=== PATIENT | male | born 1995 | race Caucasian/White ===

== ENCOUNTER 2020-07-27 10:27 | Emergency (ER) | payer MEDICAID, SELFPAY ==
[2020-07-27 10:27] VITALS: BP 147/94; PULSE 76; RESP 14; TEMP 36.6; O2SAT 97; BMI 25.7
--- NOTE | 2020-07-27 10:45 | HMH.EDUTC ---
[facility] [place] Clinical Impression: Encounter for laboratory testing for COVID-19 virus Sinusitis Qualifiers: Sinusitis location: unspecified location Chronicity: unspecified Qualified Code(s): J32.9 - Chronic sinusitis, unspecified Disposition: Home, Self-Care Condition on Discharge: Good Instructions: Sinusitis, DI for Sinusitis, DI for COVID-19 (Suspected or Confirmed ), Coronavirus Disease 2019, Preventing the Spread of Coronavirus Discharge Instructions Additional Instructions: *Monitor Temp, Over the counter Motrin or Tylenol as directed/as needed Tylenol every 4 hours and Motrin every 6 hours (as long as your family doctor has told you that you can take it) for fever or pain. and straight to ER if unable to lower temp less than 101.0 after medication given *Warm salt water gargles may help to soothe the throat *Throat Lozenges *Warm fluids like tea with honey may help to soothe the throat *Sleep elevated *Humidifier/Vaporizer Follow up IMMEDIATELY for new or worsening symptoms or no Noticeable improvement over the next 48-72 hours. 911 for difficulty breathing or swallowing You were tested for today for COVID19 your test result should be back in the next 24-48 hours, you may call to the [facility] to see if your test results are back in the next 48 hours [phone] [facility] hours are 9am-9pm You was given a handout with instructions for Self Quarantine and Self isolation for while you wait on test results and what to do if they are positive If you are positive the Health Dept will be contacting you also Prescriptions: Azithromycin [Z-Ilan 250mg Tab] 250 mg PO DIRECTED #6 tab Transmission Status: Pending to [id number] Referrals: PCP,No [Primary Care Provider] - As needed Time of Disposition: 10:49 Medical Decision Making - Anil Inquiry Pt receiving controlled substance: No Anil was queried for this patient: No Vital Signs: 07/27/20 10:27 Temperature 97.8 F Temperature Source Oral Pulse Rate [Right] 76 Respiratory Rate 14 Blood Pressure [Right Arm] 147/94 H Blood Pressure Mean [Right Arm] 111 02 Sat by Pulse Oximetry 97 [facility] [place] - General Stated complaint: covid symtoms Time Seen by Provider: 07/27/20 10:45 Description of Symptoms (Recalled from Triage Doc. by RN): pt request covid test pt c/o body aches, fever,chills HEENT Symptoms (Recalled from RN notes): No Resp Symptoms (Recalled from RN notes): Yes Skin Symptoms (Recalled from RN notes): No MS Symptoms (Recalled from RN notes): No Functional Status (Recalled from RN notes): wnl - History of Present Illness Provider Complaint: Patient wanting to get tested for COVID States that he has been having sinus pain and pressure, body aches, chills and headachy not sure if he has had a fever or not but feels like he has Denies known exposure - Related Data Previous Rx's Medication Instructions Recorded Azithromycin [Z-Ilan 250mg Tab] 250 mg PO DIRECTED #6 tab 07/27/20 Allergies Allergy/AdvReac Type Severity Reaction Status Date / Time No Known Allergies Allergy Verified 07/27/20 10:42 - Worker's Comp Is this a Worker's Comp case?: No Is this an H Worker's Comp?: No Is this a [place] Worker's Comp?: No [facility] History - Hepatitis A Screen Drug use history?: No High risk sexual behaviors?: No History of sexually transmitted infection?: No Currently employed?: No Childcare worker?: No Do you have indoor plumbing?: Yes Do you have electricity?: Yes Attestation statement:: This patient has been screened for Hepatitis A risk factors. I have reviewed the patient's past medical history: Yes 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: Denies:: Diabetes Mellitus Type 1, Diabetes Mellitus Type 2 - Social History Smoking Status: Current every day smoker Tobacco Type: cigarettes Alcohol Intake: never Occupational Status: employed ROS Obtained: Yes All systems reviewed & no additional complaints, Yes Systems reviewed as appropriate
[2020-07-27 10:53] VITALS: BP 147/94; PULSE 76; RESP 14; TEMP 36.6; O2SAT 97
[2020-07-28 11:44] LABS: Covid-19 Nasal PCR Sendout P&C NEGATIVE
== END 2020-07-27 10:57 | disposition home or self-care (01) ==
PROVIDERS: Emergency Provider Nurse Practitioner
DX: Z20.822 Contact with and (suspected) exposure to COVID-19 (principal); J32.9 Chronic sinusitis, unspecified; F17.210 Nicotine dependence, cigarettes, uncomplicated
CPT/HCPCS: 99202; G0463; U0004

== ENCOUNTER 2022-01-23 17:39 | Emergency (ER) | payer MEDICAID, SELFPAY ==
--- NOTE | 2022-01-23 17:33 | ECG_ITS ---
APPROVED REPORT Exam: Resting ECG HR:89 bpm ECG Measurements Heart Rate 89 AXES GA 137 P 68 QRSd 105 QRS 71 QT 332 T 42 QTc 379 Conclusion SINUS RHYTHM POSSIBLE LEFT ATRIAL ENLARGEMENT [-0.1mV P-WAVE IN V1/V2] BORDERLINE ECG UNCONFIRMED REPORT Electronically signed by : Curly Holcomb MD 01/24/2022 17:57:39
[2022-01-23 17:39] VITALS: BP 137/87; PULSE 94; RESP 28; TEMP 36.8; O2SAT 100; BMI 23.6
--- NOTE | 2022-01-23 17:48 | XR_ITS ---
PROCEDURE INFORMATION: Exam: XR Chest Exam date and time: 01/23/2022 6:02 PM Age: 26 years old Clinical indication: Other: Diffuse chest pain; Additional info: Cp TECHNIQUE: Imaging protocol: Radiologic exam of the chest. Views: 1 view. COMPARISON: No relevant prior studies available. FINDINGS: Lungs: Unremarkable. No consolidation. Pleural spaces: Unremarkable. No pleural effusion. No pneumothorax. Heart/Mediastinum: Unremarkable. No cardiomegaly. Bones/joints: Unremarkable. IMPRESSION: No acute findings.
--- NOTE | 2022-01-23 17:50 | HMH.EDCP ---
ED Disposition Clinical Impression: Atypical chest pain, Medication refill Disposition: Home, Self-Care Condition on Discharge: Good Instructions: DI for Atypical Chest Pain Additional Instructions: follow up PCP, return for worse Prescriptions: Buspirone HCl [Buspirone 15 mg Tablets] 15 mg PO TID PRN #15 tab PRN Reason: Anxiety Transmission Status: Received by [facility] [place] [id number] hydrOXYzine HCL [Hydroxyzine HCl] 25 mg PO Q8 PRN #15 tab PRN Reason: Anxiety Transmission Status: Received by [facility] [place] [id number] - Critical Care Critical Care Time: No Attestation: On , the high probability of a clinically significant, sudden or life threatening deterioration of the following system(s) required my full and direct attention, intervention and personal management. The time I documented below is in addition to time spent performing reported procedures but includes the following listed in this critical care notation. Medical Decision Making - Medical Records Medical records reviewed: Yes: I reviewed the patient's medical records. - Anil Inquiry Pt receiving controlled substance: No Vital Signs: 01/23/22 17:39 Temperature 98.2 F Temperature Source Oral Pulse Rate [Brachial] 94 H Respiratory Rate 28 H Blood Pressure [Right Arm] 137/87 Blood Pressure Mean [Right Arm] 103 Blood Pressure Source [Right Arm] Automatic Cuff Blood Pressure Position [Right Arm] Sitting 02 Sat by Pulse Oximetry 100 Oxygen Delivery Method Room Air - Lab Data Lab Results 01/23/22 17:45: Troponin I < 0.01 01/23/22 17:45: WBC 5.4, RBC 4.99, Hgb 14.7, Hct 44.5, MCV 89.3, MCH 29.4, MCHC 32.9, RDW 13.1, Plt Count 237, MPV 8.0, Neut % (Auto) 47.3, Lymph % (Auto) 41.0, [place] % (Auto) 5.6, Eos % (Auto) 3.8, Baso % (Auto) 2.2 H, Neut # (Auto) 2.6, Lymph # (Auto) 2.2, [place] # (Auto) 0.3, Eos # (Auto) 0.2, Baso # (Auto) 0.1 01/23/22 17:45: Sodium 139, Potassium 3.7, Chloride 102, Carbon Dioxide 29, Anion Gap 11.7, BUN 16, Creatinine 1.00, Estimated GFR 89, Est GFR ( Amer) 108, Glucose 97, Calcium 9.7, Total Bilirubin 1.0, AST 31, ALT 22, Alkaline Phosphatase 51, Total Protein 7.8, Albumin 4.8, Globulin 3.0, Albumin/Globulin Ratio 1.6 Result diagrams: 01/23/22 17:45 01/23/22 17:45 Orders (Tests/Meds): ORDERS Category Date Time Status Troponin I Q3H Lab 01/23/22 21:00 Ordered Troponin I Q3H Lab 01/24/22 00:00 Ordered - ECG Data Tracing #1 I reviewed this ECG and interpreted as documented below: ekg by me nsr, poss lae, no st elev Chest Pain HPI - General Stated Complaint: Anxiety Time Seen by Provider: 01/23/22 17:50 - History of Present Illness HPI narrative: cp, left sided, sharp, intermittent, few days says he is having a lot of anxiety from being out of anxiety meds Duration: intermittent Pain location: left chest Severity: moderate Quality: sharp Pain radiation: none Relieving factors: nothing Exacerbating factors: other (anxiety) - Related Data Previous Rx's Medication Instructions Recorded Azithromycin [Z-Ilan 250mg Tab] 250 mg PO DIRECTED #6 tab 07/27/20 Buspirone HCl [Buspirone 15 mg 15 mg PO TID PRN #15 tab 01/23/22 Tablets] hydrOXYzine HCL [Hydroxyzine HCl] 25 mg PO Q8 PRN #15 tab 01/23/22 Allergies Allergy/AdvReac Type Severity Reaction Status Date / Time No Known Allergies Allergy Verified 07/27/20 10:[address] [facility] History - Hepatitis A Screen Attestation statement:: This patient has been screened for Hepatitis A risk factors. 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: Denies:: Diabetes Mellitus Type 1, Diabetes Mellitus Type 2 - Social History Smoking Status: Current every day smoker Tobacco Type: cigarettes Alcohol Intake: never Occupational Status: employed ROS Obtained: Yes All systems reviewed & no additional complaints Physical Exam - General General appearance: alert, in no apparent distress - Head Head exam: atraumatic, normocephalic - Eye Eye exam:
[2022-01-23 18:01] LABS: Basophils # 0.1 K/mm3 (0-0.2); Basophils % 2.2 % (0.1-2.0); Chloride 102 mmol/L (98-107); Eosinophils # 0.2 K/mm3 (0.0-0.4); Eosinophils % 3.8 % (0.1-12.0); Hematocrit 44.5 % (42.0-52.0); Hemoglobin 14.7 g/dL (14.1-18.0); Lymphocytes # 2.2 K/mm3 (0.7-4.5); Mean Corpuscular HGB Conc 32.9 g/dL (31.8-35.4); Mean Corpuscular Hemoglobin 29.4 pg (27.0-31.2); Mean Corpuscular Volume 89.3 fl (80-94); Monocytes # 0.3 K/mm3 (0.1-1.0); Monocytes % 5.6 % (1.7-9.3); Neutrophils # 2.6 K/mm3 (1.8-7.8); Neutrophils % 47.3 % (37.0-80.0); Platelet Count 237 K/mm3 (142-424); Potassium 3.7 mmoL/L (3.5-5.1); Red Blood Count 4.99 M/mm3 (4.60-6.20); Red Cell Distribution Width 13.1 % (11.5-17.5); Sodium 139 mmol/L (136-145); White Blood Count 5.4 K/mm3 (4.8-10.8)
[2022-01-23 18:04] LABS: Alanine Aminotransferase 22 U/L (12-78); Albumin Level 4.8 g/dl (3.5-5.0); Albumin/Globulin Ratio 1.6 (1.1-1.8); Alkaline Phosphatase 51 U/L (38-126); Anion Gap 11.7 mEq/L (5-15); Aspartate Amino Transferase 31 U/L (17-59); Blood Urea Nitrogen 16 mg/dl (9-20); Carbon Dioxide 29 mmol/L (22.0-30.0); Estimated Glomerular Filt Rate 89 ml/min (>60); GFR (African American) 108 ML/MIN (>60); Total Protein,Serum 7.8 g/dl (6.3-8.2)
[2022-01-23 18:05] LABS: Calcium 9.7 mg/dl (8.4-10.2); Glucose 97 mg/dl (74-100)
[2022-01-23 18:20] LABS: Troponin I < 0.01 ng/ml (0.00-0.034)
--- NOTE | 2022-01-23 18:29 | PC.NURSE ---
MD AT BEDSIDE DISCUSSING POC WITH PT
[2022-01-23 20:04] VITALS: BP 137/87; PULSE 90; RESP 18; TEMP 37; O2SAT 100
== END 2022-01-23 20:08 | disposition home or self-care (01) ==
PROVIDERS: Emergency Provider Emergency Medicine
DX: R07.89 Other chest pain (principal); F41.9 Anxiety disorder, unspecified; F17.210 Nicotine dependence, cigarettes, uncomplicated
CPT/HCPCS: 71045; 80053; 84484; 85025; 93005; 99285

== ENCOUNTER 2022-10-04 17:52 | Emergency (ER) | payer MEDICAID, SELFPAY ==
[2022-10-04 18:20] VITALS: BP 127/95; PULSE 78; RESP 18; TEMP 36.7; O2SAT 96; BMI 23.7
--- NOTE | 2022-10-04 18:36 | EXP.UTC ---
Discharge Plan Disposition Patient Disposition: Home, Self-Care Condition: Good Prescriptions Prescriptions: No Action hydroxyzine HCl 25 MG tablet 25 mg PO Q8 PRN (Reason: Anxiety) Qty: 15 0RF buspirone 15 MG tablet 15 mg PO TID PRN (Reason: Anxiety) Qty: 15 0RF azithromycin 250 MG tablet 250 mg PO DIRECTED Qty: 6 0RF Rx Instructions: Take two (2) tablets on day #1, then one (1) tablet day #2 thru #5 Referrals Follow up/Referrals: Provider,Referral, MD [Primary Care Provider] - See instructions Activity Restrictions/Add. Instructions Additional Instructions/Restrictions: Gargle warm salt water Apply a mixture of half hydrogen peroxide and half water directly to the sore using a cotton swab. Follow by dabbing a small amount of Milk of Magnesia on the canker sore afterward. Repeat these steps 3 to 4 times a day. Rinse your mouth with a mixture of equal parts of half Milk of Magnesia and half Benadryl liquid allergy medicine may help with the pain Follow up with Dentist if no improvement or any worsening of symptoms Clinical Impressions Clinical Impression: Canker sores oral Instructions Patient Instructions: Aphthous Ulcers, DI for Aphthous Ulcers (Canker Sores) Discharge ED Provider: Diana Aguilar [facility] General Stated complaint: sore inside mouth Time Seen by Provider: 10/04/22 18:36 History of Present Illness Provider Complaint: Patient states that he has a canker sore on the inside of his lower lip that has been there for about 2 weeks States that he has been causing pain for about 2 weeks now States that he has tried salt water but it hasnt work so he came in not knowing what to do next to help it Related Data Previous Rx's Medication Instructions Recorded azithromycin 250 mg tablet 250 mg PO DIRECTED #6 tabs 07/27/20 buspirone 15 mg tablet 15 mg PO TID PRN Anxiety #15 tabs 01/23/22 hydroxyzine HCl 25 mg tablet 25 mg PO Q8 PRN Anxiety #15 tabs 01/23/22 Allergies Allergy/AdvReac Type Severity Reaction Status Date / Time No Known Allergies Allergy Verified 07/27/20 10:42 [facility] Disclaimer: The information contained in this section may have been updated after the patient was seen, as this information can be updated by other users. Social History Smoking Status: Current every day smoker tobacco type: cigarettes alcohol intake: never current occupational status: employed Travel in the last 8 weeks: None ROS Obtained: Yes All systems reviewed & no additional complaints except as documented and Yes Systems reviewed as appropriate & no additional complaints except as documented Constitutional Constitutional: Reports system reviewed and no additional complaints, except as documented and Reports as per HPI ENT Ears, Nose, Mouth, and Throat: Reports system reviewed and no additional complaints, except as documented, Reports as per HPI and Reports other Comments: canker sore in lower lip Physical Exam General General appearance: alert and in no apparent distress Expanded ENT Exam Mouth exam: Present other (small canker sore noted ) Respiratory Respiratory exam: Present normal lung sounds bilaterally; Absent respiratory distress or wheezes Cardiovascular Cardiovascular exam: Present regular rate, normal rhythm and normal heart sounds Abdominal Exam Abdominal exam: Present soft and normal bowel sounds; Absent distention or tenderness Neurological Exam Neurological exam: Present alert, oriented X3 and normal gait Medical Decision Making Anil Inquiry Pt receiving controlled substance: No Anil was queried for this patient: No
[2022-10-04 18:59] VITALS: BP 125/85; PULSE 80; RESP 18; TEMP 36.7; O2SAT 98
== END 2022-10-04 19:00 | disposition home or self-care (01) ==
PROVIDERS: Emergency Provider Nurse Practitioner
DX: K12.0 Recurrent oral aphthae (principal); F17.210 Nicotine dependence, cigarettes, uncomplicated
CPT/HCPCS: 99212; G0463

== ENCOUNTER 2023-09-14 10:10 | Emergency (ER) | payer MEDICAID, SELFPAY ==
[2023-09-14 10:30] VITALS: BP 118/77; PULSE 75; RESP 18; TEMP 36.8; O2SAT 99; BMI 24.2
--- NOTE | 2023-09-14 10:47 | EXP.UTC ---
Discharge Plan Disposition Patient Disposition: Home, Self-Care Condition: Good Prescriptions Prescriptions: No Action indomethacin 50 mg capsule 50 mg PO DAILY sertraline 50 mg tablet 50 mg PO DAILY Patient Comments: TAKE 1 TABLET BY MOUTH DAILY Referrals Follow up/Referrals: Provider,Referral, [Primary Care Provider] - See instructions Activity Restrictions/Add. Instructions Additional Instructions/Restrictions: FOLLOW UP WITH PCP CALL LATER TODAY FOR RESULTS FOLLOW UP WITH ENT- call saturday for appointment Clinical Impressions Clinical Impression: Thyroid enlargement Instructions Patient Instructions: DI for Cough -- Adult, Thyroid Hormone (Alternative Therapy) [facility]charge [facility] [place] H[place] General Stated complaint: sore throat Mode of Arrival: Ambulatory Source of Information: Patient Limitations: No Limitations Time Seen by Provider: 09/14/23 10:48 Description of Symptoms (Recalled from Triage Doc. by RN): PATIENT STATES HE FEELS LIKE SOMETHING IN HIS THROAT THAT HE CAN'T CLEAR. HE REPORTS THIS HAS BEEN ON GOING FOR MONTHS HEENT Symptoms (Recalled from RN notes): Yes Resp Symptoms (Recalled from RN notes): No Skin Symptoms (Recalled from RN notes): No MS Symptoms (Recalled from RN notes): No Functional Status (Recalled from RN notes): WNL History of Present Illness Provider Complaint: 27 YR OLD MALE PRESENTS FOR COUGH AND FEELING THERE IS SOMETHING STUCK IN HIS THROAT. PT STATES THIS HAS BEEN GOING ON FOR MONTHS BUT LAST PM HE SAW SOMETHING DEEP IN HIS THROAT AND HE PULLED IT OUT AND IT BLEED. PT STATES THE SENSATION HAS WORSEN Related Data Home Medications Medication Instructions Recorded Confirmed indomethacin 50 mg capsule 50 mg PO DAILY 09/14/23 09/14/23 sertraline 50 mg tablet 50 mg PO DAILY 09/14/23 09/14/23 Allergies Allergy/AdvReac Type Severity Reaction Status Date / Time No Known Allergies Allergy Verified 07/27/20 10:42 Worker's Comp Is this a Worker's Comp case?: No [facility] Disclaimer: The information contained in this section may have been updated after the patient was seen, as this information can be updated by other users. 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) Smoking Status: Current every day smoker tobacco type: cigarettes alcohol intake: never current occupational status: employed Travel in the last 8 weeks: None ROS Obtained: Yes All systems reviewed & no additional complaints except as documented Constitutional Constitutional: Reports system reviewed and no additional complaints, except as documented and Reports as per HPI Eyes Eyes: Reports system reviewed and no additional complaints, except as documented ENT Ears, Nose, Mouth, and Throat: Reports system reviewed and no additional complaints, except as documented, Reports as per HPI and Reports sore throat Cardiovascular Cardiovascular: Reports system reviewed and no additional complaints, except as documented Respiratory Respiratory: Reports system reviewed and no additional complaints, except as documented, Reports as per HPI and Reports cough Gastrointestinal Gastrointestingal: Reports system reviewed and no additional complaints, except as documented Neurologic Neurologic: Reports system reviewed and no additional complaints, except as documented Endocrine Endocrine: Reports system reviewed and no additional complaints, except as documented Allergic/Immunologic Allergic/Immunologic: Reports system reviewed and no additional complaints, except as documented Physical Exam General General appearance: alert and in no apparent distress Head Head exam: atraumatic Eye Eye exam: Present normal appearance and PERRL ENT ENT exam: Present mucous membranes moist and TM's normal bilaterally Neck Neck exam: Present thyromegaly Respiratory Respiratory exam: Present normal lung sounds bilaterally Cardiovascular Cardiovascular exam: Present regular rate and normal rhythm Neurological Exam Neurological exam: Present alert and oriented X3 Skin Skin exam: Present warm Medical Decision Making Medical Records Medical records reviewed: Yes I reviewed the patient's medical records. Anil Inquiry Pt receiving controlled substance: No Anil was queried for this patient: No Vital Signs: 09/14/23 10:30 Temperature 98.2 F Temperature Source Oral Pulse Rate [Left Brachial] 75 Respiratory Rate 18 Blood Pressure [Left Arm] 118/77 Blood Pressure Mean [Left Arm] 90 Blood Pressure Source [Left Arm] Automatic Cuff Blood Pressure Position [Left Arm] Sitting 02 Sat by Pulse Oximetry 99 Oxygen Delivery Method Room Air
--- NOTE | 2023-09-14 10:56 | XR_ITS ---
PROCEDURE INFORMATION: Exam: XR Chest Exam date and time: 09/14/2023 10:58 AM Age: 27 years old Clinical indication: Cough TECHNIQUE: Imaging protocol: Radiologic exam of the chest. Views: 2 views. COMPARISON: CR XR CHEST PORTABLE 01/23/2022 6:02 PM FINDINGS: Lungs: Unremarkable. No consolidation. Pleural spaces: Unremarkable. No pleural effusion. No pneumothorax. Heart/Mediastinum: Unremarkable. No cardiomegaly. Bones/joints: Unremarkable. IMPRESSION: No acute findings.
[2023-09-14 11:15] VITALS: BP 118/77; PULSE 75; RESP 18; TEMP 36.8; O2SAT 99
[2023-09-14 11:27] LABS: MANUAL DIFFERENTIAL MANUAL DIFFERENTIAL (MANUAL DIFF)
[2023-09-14 11:39] LABS: Eosinophils # 0.1 K/mm3 (0.0-0.4); Eosinophils % 1.8 % (0.1-12.0); Hematocrit 42.6 % (42.0-52.0); Hemoglobin 14.2 g/dL (14.1-18.0); Lymphocytes # 1.5 K/mm3 (0.7-4.5); Lymphocytes % 40.9 % (10-50); Mean Corpuscular HGB Conc 33.5 g/dL (31.8-35.4); Mean Corpuscular Volume 92.7 fl (80-94); Monocytes # 0.3 K/mm3 (0.1-1.0); Monocytes % 7.8 % (1.7-9.3); Neutrophils # 1.8 K/mm3 (1.8-7.8); Neutrophils % 48.5 % (37.0-80.0); Platelet Count 220 K/mm3 (142-424); Red Blood Count 4.59 M/mm3 (4.60-6.20); Red Cell Distribution Width 13.1 % (11.5-17.5); White Blood Count 3.7 K/mm3 (4.8-10.8)
[2023-09-14 11:45] LABS: Alanine Aminotransferase 16 U/L (12-78); Albumin Level 4.6 g/dl (3.5-5.0); Albumin/Globulin Ratio 1.6 (1.1-1.8); Alkaline Phosphatase 39 U/L (38-126); Anion Gap 9.1 mEq/L (5-15); Aspartate Amino Transferase 28 U/L (17-59); Bilirubin,Total 1.4 mg/dl (0.2-1.3); Blood Urea Nitrogen 13 mg/dl (9-20); Calcium 9.1 mg/dl (8.4-10.2); Carbon Dioxide 29 mmol/L (22.0-30.0); Chloride 106 mmol/L (98-107); Creatinine Clearance Estimated 148 mL/min (50-200); Estimated Glomerular Filt Rate 114 ml/min (>60); GFR (African American) 138 ML/MIN (>60); Globulin 2.9 g/dL (1.3-3.2); Glucose 105 mg/dl (74-100); Potassium 4.1 mmoL/L (3.5-5.1); Sodium 140 mmol/L (136-145); Total Protein,Serum 7.5 g/dl (6.3-8.2)
[2023-09-14 12:01] LABS: Free T4 (Free Thyroxine) 0.83 ng/dl (0.78-2.19)
[2023-09-14 12:15] LABS: Thyroid Stimulating Hormone 0.38 uIU/mL (0.465-4.68)
[2023-09-14 13:18] LABS: Eosinophils % 7 % (0-3); Lymphocytes % 36 % (10-50); Monocytes % 11 % (2-9); Neutrophils % 46 % (42-76); Total Cells Counted 100
[2023-09-14 13:19] LABS: Platelet Estimate Normal; RBC Morphology Normal
[2023-09-15 09:28] LABS: Thyroid Peroxidase Antibodies 12 IU/mL (0-34)
== END 2023-09-14 11:20 | disposition home or self-care (01) ==
PROVIDERS: Emergency Provider Nurse Practitioner Family
DX: R05.9 Cough, unspecified (principal); E04.9 Nontoxic goiter, unspecified; R07.0 Pain in throat; F17.210 Nicotine dependence, cigarettes, uncomplicated
CPT/HCPCS: 71046; 80053; 84439; 84443; 85007; 85014; 85018; 85048; 85049; 86376; 99212; 99214; G0463

== ENCOUNTER 2024-11-18 18:41 | Emergency (ER) | payer BC, SELFPAY ==
[2024-11-18] VITALS (8 sets, daily range): BP systolic 94–150; BP diastolic 50–114; PULSE 46–107; RESP 15–18; TEMP 36.6–37; O2SAT 93–100; BMI 27.0
--- NOTE | 2024-11-18 18:44 | ECG_ITS ---
APPROVED REPORT Exam: Resting ECG HR:96 bpm ECG Measurements Heart Rate 96 AXES MT 141 P 60 QRSd 95 QRS 60 QT 323 T 12 QTc 377 Conclusion SINUS RHYTHM POSSIBLE LEFT ATRIAL ENLARGEMENT [-0.1mV P-WAVE IN V1/V2] BORDERLINE ECG UNCONFIRMED REPORT Electronically signed by : Richi Tompkins, 11/18/2024 23:07:45
--- NOTE | 2024-11-18 19:17 | XR_ITS ---
PROCEDURE INFORMATION: Exam: XR Chest Exam date and time: 11/18/2024 7:21 PM Age: 28 years old Clinical indication: Dyspnea TECHNIQUE: Imaging protocol: Radiologic exam of the chest. Views: 1 view. COMPARISON: CR XR CHEST 2V 09/14/2023 10:58 AM FINDINGS: Lungs: Lung volumes are mildly diminished. The lungs appear clear. No focal areas of consolidation. Pleural spaces: No pleural effusions. Negative for pneumothorax. Heart/Mediastinum: Cardiac silhouette and pulmonary vasculature are within range of normal. Bones/joints: There is no evidence of acute fracture. IMPRESSION: Negative for an acute cardiopulmonary abnormality.
--- NOTE | 2024-11-18 19:19 | [facility].EDCP ---
Discharge Plan Disposition Patient Disposition: Home, Self-Care Prescriptions Prescriptions: No Action indomethacin 50 mg capsule 50 mg PO DAILY sertraline 50 mg tablet 50 mg PO DAILY Patient Comments: TAKE 1 TABLET BY MOUTH DAILY Referrals Follow up/Referrals: Provider,Referral, [Primary Care Provider] - See instructions Activity Restrictions/Add. Instructions Additional Instructions/Restrictions: No evidence of an acute cardiopulmonary emergency please follow-up with your primary care doctor and return to the emergency department any worsening of your symptoms. Of note your renal function/your creatinine was very mildly elevated at 1.4 which is not concerning in and of itself but higher than it has been in the past please follow with your primary care doctor within 1 week to have this repeated. Clinical Impressions Clinical Impression: Atypical chest pain, Anxiety, Mild renal insufficiency Print Language Print Language: Lithuanian Discharge ED Provider: Narayan Tompkins General Chief Complaint: Chest Pain Stated Complaint: Chest Pain Time Seen by Provider: 11/18/24 19:08 Mode of Arrival: Ambulatory Source of Information: Patient Description of Symptoms (Recalled from ER Triage Doc. by RN): Pt presents with left sided chest pain that started yesterday. Pt states he went to [employer] yesterday and by the time he got home felt like he could hardly breathe. PT states he has a hx of anxiety and has been under increased stress History of Present Illness HPI narrative: Patient is a 28-year-old male presenting today with left-sided chest pain. Started yesterday evening around 6 PM has been constant and ongoing since that time. No dyspnea associate with this no lower extremity swelling no hemoptysis no history of PE or DVT. Patient denies any fevers chills cough etc. Patient does have a history of significant anxiety and stress. Denies any history of any gastroesophageal reflux disease or any use of antacids etc. No history of any pain or symptoms like this in the past. Related Data Home Medications ?Medication ?Instructions ?Recorded ?Confirmed indomethacin 50 mg capsule 50 mg PO DAILY 09/14/23 09/14/23 sertraline 50 mg tablet 50 mg PO DAILY 09/14/23 09/14/23 Allergies Allergy/AdvReac Type Severity Reaction Status Date / Time No Known Allergies Allergy Verified 07/27/20 10:42 [facility] Disclaimer: The information contained in this section may have been updated after the patient was seen, as this information can be updated by other users. 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) Smoking Status: Current some day smoker tobacco type: cigarettes alcohol intake: never current occupational status: employed Travel in the last 8 weeks?: None Have you lived/traveled outside US in past 30 days?: No Contact w/someone who lives/traveled outside US past 30 days?: No Exposure to someone with infectious disease in past 14 days?: No Do you have a fever (greater than 100.4 F or 38 C)?: No Have you tested positive for COVID-19?: No Exposed to someone with COVID-19 in past 14 days?: No Do you have a sore throat?: No Do you have a cough?: No Do you have any weakness?: No Do you have any diarrhea?: No Are you experiencing any unusual bleeding?: No Do you have any muscle aches/pain?: No Do you have any abdominal pain?: No Are you experiencing loss of taste or smell?: No Other 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 Have you received the Flu Vaccine for this season: No Have you received the Pneumonia Vaccine: No ROS Obtained: Yes All systems reviewed & no additional complaints except as documented Physical Exam General General appearance: anxious (Very anxious and somewhat paranoid concerned that I am asking questions because of his use of edible THC) Respiratory Respiratory exam: Present normal lung sounds bilaterally; Absent respiratory distress Cardiovascular Cardiovascular exam: Present regular rate and normal rhythm Abdominal Exam Abdominal exam: Present soft; Absent distention or tenderness Neurological Exam Neurological exam: Present alert, oriented X3, CN II-XII intact and normal gait Psychiatric Psychiatric exam: Present anxious HEART Score HEART Score HEART Score assessment performed?: Yes History (anamnesis): Slightly suspicious ECG: Normal Age: <45 years Risk factors: No known risk factors Troponin: </= normal limit HEART Score: 0 Critical Care Critical Care Time Critical Care Time: No Medical Decision Making Anil Inquiry Pt receiving controlled substance: No Vital Signs Vital Signs: 11/18/24 18:47 11/18/24 18:52 11/18/24 19:01 Temperature 98.6 F Temperature Source Oral Pulse Rate 92 H 93 H Pulse Rate [Right] 92 H Respiratory Rate 18 Blood Pressure 127/86 Blood Pressure [Right Arm] 150/114 H Blood Pressure Mean [Right Arm] 126 Blood Pressure Source [Right Arm] Automatic Cuff Blood Pressure Position [Right Arm] Standing 02 Sat by Pulse Oximetry 100 95 Oxygen Delivery Method Room Air 11/18/24 19:30 11/18/24 19:56 11/18/24 19:57 Temperature Temperature Source Pulse Rate 107 H 51 L 46 L Pulse Rate [Right] Respiratory Rate 15 16 Blood Pressure 133/80 94/58 L 98/50 L Blood Pressure [Right Arm] Blood Pressure Mean [Right Arm] Blood Pressure Source [Right Arm] Blood Pressure Position [Right Arm] 02 Sat by Pulse Oximetry 95 93 L 96 Oxygen Delivery Method Room Air 11/18/24 20:00 Temperature Temperature Source Pulse Rate Pulse Rate [Right] Respiratory Rate 16 Blood Pressure 114/72 Blood Pressure [Right Arm] Blood Pressure Mean [Right Arm] Blood Pressure Source [Right Arm] Blood Pressure Position [Right Arm] 02 Sat by Pulse Oximetry 95 Oxygen Delivery Method Lab Data Lab results reviewed: Yes I reviewed the patient's lab results. Labs: Lab Results 11/18/24 18:49: WBC 6.7, RBC 4.39 L, Hgb 13.1 L, Hct 38.3 L, MCV 87.2, MCH 29.8, MCHC 34.2, RDW 12.2, Plt Count 252, MPV 9.8, Neut % (Auto) 44.9, Lymph % (Auto) 43.2, [place] % (Auto) 8.4, Eos % (Auto) 2.7, Baso % (Auto) 0.6, Neut # (Auto) 3.0, Lymph # (Auto) 2.9, [place] # (Auto) 0.6, Eos # (Auto) 0.2, Baso # (Auto) 0.0, D-Dimer 0.62 H, Sodium 137, Potassium 3.9, Chloride 106, Carbon Dioxide 27, Anion Gap 7.9, BUN 22 H, Creatinine 1.40 H, Estimated Creat Clear 96, Estimated GFR 60, Est GFR ( Amer) 72, Glucose 135 H, Calcium 8.8, Total Bilirubin 0.8, AST 36, ALT 26, Alkaline Phosphatase 42, Troponin I < 0.01, Total Protein 7.6, Albumin 4.8, Globulin 2.8, Albumin/Globulin Ratio 1.7, Lipase 59 11/18/24 18:49 11/18/24 18:49 Response Orders (Tests/Meds): ED MEDICATIONS Generic Name Dose Route Start Last Admin Trade Name Freq PRN Reason Stop Dose Admin Lactated Ringer's 1,000 mls @ 999 mls/hr 11/18/24 19:30 11/18/24 19:28 Lactated Ringer's 1000 Ml Bag IV 11/18/24 20:30 999 mls/hr .Q1H1M NICKI Administration Discontinued Medications Generic Name Dose Route Start Last Admin Trade Name Freq PRN Reason Stop Dose Admin Belladonna Alkaloids 60 ml 11/18/24 19:18 11/18/24 19:27 Belladonna Alkaloids 60 Ml Ml PO 11/18/24 19:19 60 ml ONCE ONE Administration Ketorolac Tromethamine 15 mg 11/18/24 19:17 11/18/24 19:28 Ketorolac 30mg/Ml Vial IV 11/18/24 19:18 15 mg ONCE ONE Administration ORDERS Category Date Time Status CXR --portable [XR chest portable] Stat Exams 11/18/24 19:17 Completed CBC w/Auto Diff [Complete Blood Count Auto Diff] Stat Lab 11/18/24 18:49 Completed CMP [Comprehensive Metabolic Panel] Stat Lab 11/18/24 18:49 Completed D-Dimer Stat Lab 11/18/24 18:49 Completed Lipase Stat Lab 11/18/24 18:49 Completed Trop I [Troponin I] Stat Lab 11/18/24 18:49 Completed Troponin I Q3H Lab 11/18/24 22:30 Ordered Troponin I Q3H Lab 11/19/24 01:30 Ordered ECG Data Tracing #1: Attestation: I reviewed this ECG and interpreted as documented below: ECG Narrative: Ventricular to 96 there is a Q wave and T wave inversion in the inferior lead #3 but no contiguous ischemic changes no [id number] normal axis no significant conduction abnormalities noted MDM Narrative Medical Decision Narrative: Patient with above history and physical 28-year-old with benign history and physical aside from mild tachycardia we will get a D-dimer for that reason as we cannot use pulmonary embolism rule out criteria will have a cutoff of 1.0 utilizing years criteria for obtaining a CT PE which I think a pulmonary embolism is unlikely but on the differential. Will get a single troponin to rule out acute coronary syndrome given duration of symptoms. Most likely this is anxiety and stress which will be a diagnosis of exclusion. IV fluids Toradol GI cocktail have been administered as GERD is on the differential as well. Will reassess shortly. Reassessment 8:12 PM patient very comfortable and sleeping at this point. Of note he did take multiple edible marijuana supplements prior to arrival and has been very anxious while he has been here which are the majority of his symptom causes at this point. Chest x-ray is performed which I personally interpreted which shows no evidence of any acute cardiopulmonary emergency. Troponin undetectably low as stated above will not get serial troponins. D-dimer less than 1.[address] PE. Overall emergent cardiopulmonary abnormalities have been ruled out. Of note patient did have a creatinine of 1.4 up from a baseline of 0.8 also had a baseline in the past of 1.0 this is mildly elevated at a proportion to what has been at baseline he has been told on discharge to follow-up with primary care doctor have this repeated I do not feel he needs to be hospitalized at this moment as this is likely an incidental finding. Return precautions emphasized and patient was discharged in stable condition.
[2024-11-18] MEDS: BELLADONNA ALKALOIDS 60 ML ML PO (19:27)
[2024-11-18] MEDS: LACTATED RINGERS 1000ML 1,000 ML 999 ML IV (19:28)
[2024-11-18] MEDS: KETOROLAC 30MG/ML VIAL 15 MG IV (19:28)
[2024-11-18 19:31] LABS: Basophils % 0.6 % (0.1-2.0); Eosinophils # 0.2 Kmm3 (0.0-0.4); Eosinophils % 2.7 % (0.1-12.0); Hematocrit 38.3 % (42.0-52.0); Hemoglobin 13.1 g/dL (14.1-18.0); Immature Granulocytes # 0.01 10^3uL; Immature Granulocytes % 0.2 %; Lymphocytes # 2.9 K/mm3 (0.7-4.5); Lymphocytes % 43.2 % (10-50); Mean Corpuscular HGB Conc 34.2 g/dL (31.8-35.4); Mean Corpuscular Hemoglobin 29.8 pg (27.0-31.2); Mean Corpuscular Volume 87.2 fl (80-94); Mean Platelet Volume 9.8 fl (7.4-10.4); Monocytes # 0.6 K/mm3 (0.1-1.0); Monocytes % 8.4 % (1.7-9.3); Neutrophils % 44.9 % (37.0-80.0); Nucleated Red Blood Cells # 0 10^3/uL; Nucleated Red Blood Cells % 0 %; Platelet Count 252 K/mm3 (142-424); Red Blood Count 4.39 M/mm3 (4.60-6.20); Red Cell Distribution Width 12.2 % (11.5-17.5); White Blood Count 6.7 K/mm3 (4.8-10.8)
[2024-11-18 19:39] LABS: Alanine Aminotransferase 26 U/L (12-78); Albumin Level 4.8 g/dl (3.5-5.0); Albumin/Globulin Ratio 1.7 (1.1-1.8); Alkaline Phosphatase 42 U/L (38-126); Anion Gap 7.9 mEq/L (5-15); Aspartate Amino Transferase 36 U/L (17-59); Bilirubin,Total 0.8 mg/dl (0.2-1.3); Blood Urea Nitrogen 22 mg/dl (9-20); Calcium 8.8 mg/dl (8.4-10.2); Carbon Dioxide 27 mmol/L (22.0-30.0); Chloride 106 mmol/L (98-107); Creatinine Clearance Estimated 96 mL/min (50-200); Estimated Glomerular Filt Rate 60 ml/min (>60); GFR (African American) 72 ML/MIN (>60); Globulin 2.8 g/dL (1.3-3.2); Glucose 135 mg/dl (74-100); Potassium 3.9 mmoL/L (3.5-5.1); Sodium 137 mmol/L (136-145); Total Protein,Serum 7.6 g/dl (6.3-8.2)
[2024-11-18 19:41] LABS: Lipase 59 U/L (23-300)
[2024-11-18 19:47] LABS: D-Dimer 0.62 ug/mL (0.0-0.5)
[2024-11-18 19:59] LABS: Troponin I < 0.01 ng/ml (0.00-0.034)
== END 2024-11-18 20:21 | disposition home or self-care (01) ==
PROVIDERS: Emergency Provider Student in an Organized Health Care Education/Training Program
DX: R07.89 Other chest pain (principal); F41.9 Anxiety disorder, unspecified; N28.9 Disorder of kidney and ureter, unspecified
CPT/HCPCS: 71045; 80053; 83690; 84484; 85025; 85378; 93005; 96361; 96374; 99285; J1885; J7120

== ENCOUNTER 2025-04-08 20:37 | Emergency (ER) | payer BC, SELFPAY ==
[2025-04-08 21:02] VITALS: BP 128/78; PULSE 87; RESP 20; TEMP 36.8; O2SAT 96; BMI 29.2
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
[2025-04-08 21:27] VITALS: BP 128/78; PULSE 87; RESP 20; TEMP 36.8; O2SAT 96
== END 2025-04-08 21:29 | disposition home or self-care (01) ==
PROVIDERS: Emergency Provider Student in an Organized Health Care Education/Training Program
DX: S06.0X0A Concussion without loss of consciousness, initial encounter (principal); R42 Dizziness and giddiness; R53.83 Other fatigue; R51.9 Headache, unspecified; W50.1XXA Accidental kick by another person, initial encounter
CPT/HCPCS: 99283